=== PATIENT | female | born 1950 | race Caucasian/White ===

== ENCOUNTER 2024-07-27 12:55 | Outpatient (AMB) | payer MEDICARE, SELFPAY ==
--- NOTE | 2024-07-27 12:58 | AM.OFFWIN_ITS ---
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 - Sore throat began three days prior. - Reports fever sensation and headache. - Denies ear pain, mild chills present. - Experiences painful swallowing and cou gh. - Notably exposed to a sick contact rece ntly. - Took Benadryl two nights ago suspectin g allergies, no relief. Review of Systems - ENT: Reports sore throat, painful swal lowing. Denies ear pain. - Constitutional: Reports headaches, mil d chills, sensation of fever. - Respiratory: Reports cough. Exam: General: Awake, alert. No apparent distress Eyes: Sclera and conjunctiva clear bilaterally Nose: Nares scant yellow drainage bilat, turbinates within normal limits, no sinus tenderness with palpation bilaterally Ears: Tympanic membranes intact and clear bilaterally Throat: Moist mucosa membrane, pharynx within normal limits, strep negative. Heart: Regular rate and rhythm. + murmur (states known) no click, rubs or gallops are noted. Respiratory: Clear to auscultation bilaterally, occassional dry cough w/o distress Results - Diagnostic Tests: Throat swab negative for streptococcal infection. Discussion Notes During the consultation, I explained to Sandy that the sore throat and accompanying symptoms are likely due to a viral infection. I reassured her that viral infections are self-limiting and usually resolve with time. I recommended symptomatic treatment including aezk-yzz-djenufh options such as NyQuil or DayQuil and salt water gargles. I advised that if symptoms persist beyond 10 days or if they worsen, she should revisit for further evaluation. I educated her on the possibility of a viral infection transitioning into a bacterial one under rare circumstances. I confirmed her understanding and agreement with the provided information and follow-up plan. Assessment and Plan 1. Acute Viral Pharyngitis - Viral etiology suspected. - Symptomatic management advised. - Follow-up if symptoms worsen or persis t. 2. Headache - Suspected due to viral infection. - Treat symptomatically. 3. Cough - Associated with viral infection. - Use pkji-zic-ancmvhp treatment. Patient Instructions - Take peuz-cmo-yqtszkj medications like NyQuil or DayQuil as needed. - Use salt water gargles to soothe throa t pain. - Return to the clinic if symptoms last more than 10 days or worsen. Consent Patient was informed and verbally consented to the use of an ambient scribe for clinic note documentation during this visit. Physical Exam Vital Signs: Last Vital Signs Temp 98.2 F 07/27/24 13:03 Pulse 91 07/27/24 13:03 Resp 15 07/27/24 13:03 BP 110/70 07/27/24 13:03 Pulse Ox 91 L 07/27/24 13:03 Oxygen Delivery Method Room Air 07/27/24 13:03 BMI result Body Mass Index 30.7 Results AMB Rapid Strep AMB Rapid Strep Negative Last Edit by Vane Cordova CMA on 07/27/24 13:09 Results Reviewed Results Reviewed: Laboratory Last Values Strep Scn Rapid Clinic Negative 07/27/24 13:02 Assessment & Plan Assessment & Plan (1) Viral URI with cough: Code(s): J06.9 - Acute upper respiratory infection, unspecified Plan . Orders: Orders AMB Rapid Strep Screen Today Z13.9 - Encounter for screening, unspecified Patient Instructions: Why aren't I getting antibiotics? I am so sick. I need them. I am empathetic that you're not feeling well & want you to recover quickly. The reason I have not prescribed antibiotics today is because I am an Antibiotic Aramis. What does that mean? It means that I am aiding in reducing Antimicrobial resistance (AMR). Antimicrobial resistance (AMR) is one of the top global public health and development threats. It is estimated that bacterial AMR was directly responsible for 1.27 million global deaths in 2019 and contributed to 4.95 million deaths. The misuse and overuse of antimicrobials in humans, animals and plants are the main drivers in the development of drug-resistant pathogens. Taking an antibiotic increases a patient?s chance of becoming colonized or infected with a resistant organism, and taking an antibiotic when not needed can lead to the development of antibiotic resistance. So the why... is because I care! Coding Level of Care Code Est Pt Level 3 (99712) Diagnoses Viral URI with cough J06.9
[2024-07-27 13:03] VITALS: BP 110/70; PULSE 91; RESP 15; TEMP 36.8; O2SAT 91; BMI 30.7
== END 2024-07-27 14:10 | disposition home or self-care (01) ==
PROVIDERS: Visit Provider Nurse Practitioner Family
DX: J06.9 Acute upper respiratory infection, unspecified (principal); Z13.9 Encounter for screening, unspecified

== ENCOUNTER → 2024-07-27 12:55 | Outpatient (BNVA) | payer MEDICARE, SELFPAY | PROVIDERS: Visit Provider Nurse Practitioner Family | DX: J06.9 Acute upper respiratory infection, unspecified (principal) | CPT/HCPCS: 87880; 99212 ==